=== PATIENT | female | born 1980 | race Caucasian/White ===

== ENCOUNTER → 2021-10-05 | Outpatient (CLI) | payer OTHER ==
--- NOTE | 2021-10-06 17:14 | RAD ---
BILATERAL SCREENING MAMMOGRAM History: Routine screening. Comparison: 09/01/2020 Technique: Routine 2D and 3D tomosynthesis digital mammogram views were obtained bilaterally to inclu de implant displaced and nondisplaced views. Interpretation was assisted with the use of computer-aid ed detection. Findings: Breast Tissue Density C : The breasts are heterogeneously dense, which may obscure small masses. There are no dominant masses, suspicious microcalcifications, or architectural distortion. Redemonst ration of bilateral subpectoral saline implants. IMPRESSION: No mammographic evidence of malignancy. Recommend routine screening mammography in one year. BI-RADS category 1: Negative. Patient information is entered into the reminder system with a target due date for the next screening mammogram. "Our facility is accredited by the [employer] Mammography [employer]." Electronically signed by: ROSI RESTREPO MD (10/06/2021 5:11 PM) [id number]
== END ==
LOC: MAMMO 10:14
PROVIDERS: ATTEND Family Medicine
DX: Z12.31 Encounter for screening mammogram for malignant neoplasm of breast (principal)
CPT/HCPCS: 77063; 77067